=== PATIENT | male | born 1965 | race Caucasian/White ===

== ENCOUNTER 2017-02-21 09:35 | Inpatient (IN) | payer MEDICAID ==
[~2017-02-21] VITALS: Ht 180.3 cm; Wt 109.0 kg
[2017-02-21] MEDS ORDERED: BYSTOLIC20 MG PO (10:19)
[2017-02-21] MEDS ORDERED: HYTRIN 1MG C1 MG/CAP PO (10:19)
[2017-02-21] MEDS ORDERED: NORCO 325 MG-101 TAB PO (10:20)
[2017-02-21 11:06] VITALS: BP 172/97; PULSE 60; TEMP 99
[2017-02-21 13:08] VITALS: BP 187/105; PULSE 58
[2017-02-21 15:13] LABS: POTASSIUM 4.8 mmol/L (3.4-5.0)
[2017-02-21 18:23] LABS: ADJUSTED CALCIUM 8.7 mg/dL (8.4-10.2); ALBUMIN 3.7 gm/dL (3.5-5.0); BILIRUBIN,TOTAL 0.5 mg/dL (0.0-1.0); CALCIUM 8.5 mg/dL (8.4-10.2); TOTAL PROTEIN 7.1 gm/dL (6.4-8.2)
[2017-02-21 18:44] LABS: CREATININE, serum 5.79 mg/dL (0.66-1.25)
[2017-02-21 21:13] LABS: MAGNESIUM 1.7 mg/dL (1.6-2.3)
[2017-02-21 21:50] VITALS: BP 190/87; PULSE 59; TEMP 98.9
[2017-02-21 22:05] VITALS: BP 170/94; PULSE 61; TEMP 98.3
[2017-02-21 23:40] LABS: HEPATITIS B CORE AB,TOTAL Negative (()); HEPATITIS B SURFACE AB-QL Negative (()); HEPATITIS B SURFACE ANTIBODY <2.0 (())
[2017-02-22 00:53] LABS: HEPATITIS C VIRUS ANTIBODY Reactive (())
[2017-02-22 01:32] VITALS: BP 161/79; PULSE 63; TEMP 97.9
[2017-02-22 02:09] VITALS: BP 167/83; PULSE 58; TEMP 97.5
[2017-02-22 05:21] VITALS: BP 147/75; PULSE 50; TEMP 97.8
[2017-02-22 06:13] VITALS: BP 187/85; PULSE 56; TEMP 97
[2017-02-22 08:40] LABS: ALBUMIN 3.7 gm/dL (3.5-5.0); CALCIUM 8.6 mg/dL (8.4-10.2); CREATININE, serum 3.72 mg/dL (0.66-1.25); POTASSIUM 3.9 mmol/L (3.4-5.0)
[2017-02-22 08:58] LABS: PHOSPHOROUS 3.5 mg/dL (2.5-4.5)
[2017-02-22 10:52] VITALS: BP 194/81; PULSE 61; TEMP 97.9
== END 2017-02-22 12:51 | disposition home or self-care (01) | DRG 682 ==
LOC: EUO 09:35 → COL.CAR 10:00 → SURG 17:45 → EUO 18:13 → SURG 18:14
PROVIDERS: Internal Medicine Nephrology
PROC: 02HV33Z Insertion of Infusion Device into Superior Vena Cava, Percutaneous Approach (ICD-10-PCS; principal; 2017-02-21)
PROC: 5A1D60Z (ICD-10-PCS; 2017-02-21)
DX: I12.0 Hypertensive chronic kidney disease with stage 5 chronic kidney disease or end stage renal disease (principal); N18.6 End stage renal disease; D63.1 Anemia in chronic kidney disease; B18.2 Chronic viral hepatitis C; F17.220 Nicotine dependence, chewing tobacco, uncomplicated; Z99.2 Dependence on renal dialysis; Z88.0 Allergy status to penicillin
CPT/HCPCS: C1751; C1769; J2250; J3010; J7120

== ENCOUNTER 2017-04-21 14:55 | Emergency (ER) | payer OTHER ==
[~2017-04-21] VITALS: Ht 180.3 cm; Wt 103.0 kg
[~2017-04-21 14:55] MED LIST: BYSTOLIC20 MG PO; HYTRIN 1MG C1 MG/CAP PO; NORCO 325 MG-101 TAB PO
[2017-04-21 15:12] VITALS: TEMP 98
[2017-04-21] MEDS ORDERED: AMBIEN 10MG10 MG PO (15:16)
[2017-04-21 15:57] LABS: BASO % 0.7 % (0.0-2.0); EOS # 0.3 (0.0-0.7); EOS % 4.2 % (0-4.0); GRAN # 3.4 (1.4-6.5); GRAN % 58.4 % (42.2-75.2); HEMATOCRIT 32.1 % (42.0-52.0); HEMOGLOBIN 11.1 g/dl (13.5-18.0); LYMPH # 1.5 (1.2-3.4); LYMPH % 25.5 % (20.0-51.0); MEAN CELL VOLUME 92 fl (80.0-100.0); MEAN CORPUSCULAR HEMOGLOBIN 32 pg (27.0-31.0); MEAN CORPUSCULAR HGB CONC 35 g/dl (33.0-37.0); MONO # 0.6 (0.1-0.6); MONO % 10.9 % (1.7-9.3); PLATELET COUNT 99 K/mm3 (130-400); RED BLOOD COUNT 3.48 M/mm3 (4.20-5.60); REDCELL DISTRIBUTION WIDTH-CV 13.1 % (11.5-14.5); WHITE BLOOD COUNT 5.9 K/mm3 (4.8-10.8)
[2017-04-21 16:07] LABS: ADJUSTED CALCIUM 9.1 mg/dL (8.4-10.2); ALBUMIN 4.5 gm/dL (3.5-5.0); BILIRUBIN,TOTAL 0.5 mg/dL (0.0-1.0); CALCIUM 9.5 mg/dL (8.4-10.2); MAGNESIUM 1.7 mg/dL (1.6-2.3); PHOSPHOROUS 4.4 mg/dL (2.5-4.5); POTASSIUM 5.1 mmol/L (3.4-5.0); TOTAL PROTEIN 8.4 gm/dL (6.4-8.2)
[2017-04-21 16:10] LABS: CREATININE, serum 8.71 mg/dL (0.66-1.25)
[2017-04-21 16:48] VITALS: BP 182/106; PULSE 73
== END 2017-04-21 17:02 | disposition home or self-care (01) ==
LOC: COL.ER 14:55
PROVIDERS: Emergency Medicine
DX: I12.0 Hypertensive chronic kidney disease with stage 5 chronic kidney disease or end stage renal disease (principal); N18.6 End stage renal disease; E87.5 Hyperkalemia; Z99.2 Dependence on renal dialysis; Z87.19 Personal history of other diseases of the digestive system; Z98.890 Other specified postprocedural states

== ENCOUNTER → 2017-05-13 | Outpatient (CLI) | payer MEDICAID ==
[~2017-05-13] MED LIST changes: +AMBIEN 10MG10 MG PO
== END ==
LOC: COL.VAS 13:02
DX: Z01.810 Encounter for preprocedural cardiovascular examination (principal)
CPT/HCPCS: G0365